=== PATIENT | female | born 1990 | race Caucasian/White ===

== ENCOUNTER 2024-07-04 14:24 | Emergency (ER) | payer OTHER, SELFPAY ==
--- NOTE | ~2024-07-04 | US_ITS ---
EXAMINATION: US OB <=14 wk fetus w TV DATE: 07/04/2024 18:23 INDICATION: Pelvic pain TECHNIQUE: Real-time transabdominal and transvaginal obstetric ultrasound. FINDINGS: No prior studies for comparison. The uterus measures 7.3 x 4.6 x 5.5 cm. There is an intrauterine gestational sac, with pole ema ntified. The crown rump length measures 0.67 cm, which correlates with a estimated gestational age o f 6 weeks 4 days. heart tones are identified measuring 132 bpm. Incidental note is made of a nabothian cysts. There are follicular changes in the right ovary. No free fluid in the pelvis. IMPRESSION: 1. SL IUP with an EGA of 6 weeks, 4 days (EDC by current ultrasound of 02/23/2025). Reviewed, dictated and finalized at location A. RADIAL DRILL PRESS SET UP OPERATOR IMPRESSION: 1. SL IUP with an EGA of 6 weeks, 4 days (EDC by current ultrasound of 02/24/20 25).
--- NOTE | ~2024-07-04 | US_ITS ---
RIGHT UPPER QUADRANT ABDOMINAL ULTRASOUND (Doppler ultrasound interrogation techniques used as needed for this exam.) Ordering provider: Vesna Enriquez PA-C History: . RUQ abd pain . Comparison: None. FINDINGS: PANCREAS: Normal echotexture and size. PORTAL VEIN: Hepatopedal flow demonstrated. LIVER: Normal size and echotexture. No focal hepatic lesions or perihepatic fluid collections are ema ntified. BILIARY DUCTS: No intra or extrahepatic biliary dilation. Common bile duct measures 3 mm in diameter which is normal for patient's age. GALLBLADDER: Normal. No stones, sludge, gallbladder wall thickening or pericholecystic fluid. Wall th icknesses 0.2 cm. Negative sonographic Adan's sign. Aorta: Normal. IVC: Normal. FREE FLUID: None visualized within the upper abdomen. IMPRESSION: Normal right upper quadrant ultrasound. Reviewed, dictated and finalized at location A. COUNSELOR
[2024-07-04 14:32] VITALS: BP 161/102; PULSE 122; RESP 18; TEMP 36.6; O2SAT 100
--- NOTE | 2024-07-04 14:39 | ED_ITS ---
HPI - Abdominal Pain General Chief Complaint: Abdominal Pain <Vesna Enriquez PA-C - Last Filed: 07/04/24 14:40> Stated Complaint: I think I have an ectopic <Vesna Enriquez PA-C - Last Filed: 07/04/24 14:40> Time Seen by Provider: 07/04/24 15:28 <Vesna Enriquez PA-C - Last Filed: 07/04/24 14:40> Focused HPI: 33-year-old female presents emergency department for abdominal pain and concerns for . Patient states her last period was end of April but it was septic tank setter and shorter than normal. She then missed her period in May. On June 18 she took a test which was positive. She presents today for abdominal pain. She states she has had intermittent abdominal pain in the right upper quadrant for several years and has been worked up for this on an outpatient basis with no cause identified. She states this same pain is occurring again which prompted her to come to the ED because she is concerned she may be having an ectopic . States the pain is in the right upper quadrant radiates at times to the right lower quadrant. No aggravating or alleviating factors. Patient also states she has she has had light spotting since she had a positive test. States she has past month thoughts but has not required a pad or tampon, notices blood in the morning when she wipes. Denies dysuria or hematuria, fever. No prior abdominal surgeries. GENERAL: Well-appearing, well-nourished, and in no acute distress. HEAD: Normocephalic, atraumatic. CHEST: Clear to auscultation. ?No respiratory distress. HEART: Regular rate and rhythm.? NEURO: ?Alert and oriented x3. Patient screened in triage and initial orders placed.? ?Additional care and disposition to be based upon?diagnostic testing and treatment. <Vesna Enriquez PA-C - Last Filed: 07/04/24 14:40> History of Present Illness HPI narrative: Agree with HPI. Chronic right-sided abdominal pain over last 2 weeks she has had a positive test with persistent red vaginal spotting. No syncope. with elective AB2. Denies fevers or chills or sweats. No urinary frequency urgency or dysuria. No vaginal discharge. <Niko De Anda MD - Last Filed: 07/04/24 19:24> Related Data Allergies/Adverse Reactions: Allergies Allergy/AdvReac Type Severity Reaction Status Date / Time No Known Allergies Allergy Verified 07/04/24 14:25 <Vesna Enriquez PA-C - Last Filed: 07/04/24 14:40> Review of Systems 2 Review of Systems: All systems reviewed & are unremarkable except as noted in HPI and below <Niko De Anda MD - Last Filed: 07/04/24 19:24> Constitutional: Constitutional: Reports no additional constitutional complaints <Niko De Anda MD - Last Filed: 07/04/24 19:24> Cardiovascular: Cardiovascular: Reports no additional cardiovascular complaints <Niko De Anda MD - Last Filed: 07/04/24 19:24> Respiratory: Respiratory: Reports no additional respiratory complaints < Niko De Anda MD - Last Filed: 07/04/24 19:24> Gastrointestinal: Gastrointestinal: Reports no additional gastrointestinal complaints <Niko De Anda MD - Last Filed: 07/04/24 19:24> Genitourinary: Genitourinary: Reports no additional female genitourinary complaints <Niko De Anda MD - Last Filed: 07/04/24 19:24> PMFSH Social History Social History: Social History Smoking status: Current every day smoker Alcohol intake: current <Vesna Enriquez PA-C - Last Filed: 07/04/24 14:40> Exam 2 Narrative: GENERAL: Well-appearing, well-nourished, and in no acute distress. HEAD: Normocephalic, atraumatic. ENT: Mucous membranes moist. CHEST: Clear to auscultation. No respiratory distress. HEART: Regular rate and rhythm. Normal peripheral pulses. ABDOMEN: Soft, nontender, nondistended. Pelvic: Normal external genitalia. Cervix closed with scant blood and no discharge. EXTREMITIES: Normal range of motion. No edema. NEURO: Alert and oriented x3. PSYCH: Normal mood and affect. <Niko De Anda MD - Last Filed: 07/04/24 19:24> Course Course Emergency Course: Live IUP. Labs unremarkable with exception of low potassium. A+ so no RhoGAM. Will give OB f/u. <Niko De Anda MD - Last Filed: 07/04/24 19:24> Vital Signs Vital signs: Vital Signs Temperature 98 F 07/04/24 14:32 Pulse Rate 122 H 07/04/24 14:32 Respiratory Rate 18 07/04/24 14:32 Blood Pressure 161/102 H 07/04/24 14:32 Pulse Oximetry 100 07/04/24 14:32 Oxygen Delivery Room Air 07/04/24 14:32 Temperature 98 F 07/04/24 14:32 Pulse Rate 122 H 07/04/24 14:32 Respiratory Rate 18 07/04/24 14:32 Blood Pressure 161/102 H 07/04/24 14:32 Pulse Oximetry 100 07/04/24 14:32 Oxygen Delivery Room Air 07/04/24 14:32 <Vesna Enriquez PA-C - Last Filed: 07/04/24 14:40> Vital Signs Temperature 98 F 07/04/24 14:32 Pulse Rate 122 H 07/04/24 14:32 Respiratory Rate 18 07/04/24 14:32 Blood Pressure 161/102 H 07/04/24 14:32 Pulse Oximetry 100 07/04/24 14:32 Oxygen Delivery Room Air 07/04/24 14:32 Temperature 98 F 07/04/24 14:32 Pulse Rate 122 H 07/04/24 14:32 Respiratory Rate 18 07/04/24 14:32 Blood Pressure 161/102 H 07/04/24 14:32 Pulse Oximetry 100 07/04/24 14:32 Oxygen Delivery Room Air 07/04/24 14:32 <Niko De Anda MD - Last Filed: 07/04/24 19:24> MDM - Abdominal Pain Lab Data Result diagrams: 07/04/24 16:05 07/04/24 16:05 <Vesna Enriquez PA-C - Last Filed: 07/04/24 14:40> Labs: Lab Results 07/04/24 07/04/24 Range/Units 16:05 18:19 WBC 7.5 (4.5-10.0) K/mm3 RBC 4.47 (4.2-5.4) M/mm3 Hgb 13.4 (12.0-15.0) g/dL Hct 38.2 (37.0-47.0) % MCV 85.5 (80-100) fl MCH 30.0 (26-34) pg MCHC 35.1 (32-36) g/dl RDW 12.2 (11.5-14.5) % Plt Count 201 (150-375) k/mm3 MPV 9.7 (7.4-10.4) fl Immature Gran % (Auto) 0.3 (0-0.5) % Neut % (Auto) 68.1 (45.5-73.1) % Lymph % (Auto) 23.4 (18.3-44.2) % [place] % (Auto) 7.6 (2.6-8.5) % Eos % (Auto) 0.3 (0-4.4) % Baso % (Auto) 0.3 (0.2-1.2) % Lymph # (Auto) 1.75 (0.9-3.2) K/mm3 [place]ran # (Auto) 0.6 (0.1-0.6) K/mm3 Eos # (Auto) 0.0 (0-0.3) K/mm3 Baso # (Auto) 0.0 (0.0-0.1) K/mm3 Abs Immat Gran (auto) 0.02 (0.00-0.031) K/mm3 Absolute Neuts (auto) 5.1 (1.3-6.7) K/mm3 Absolute Nucleated RBC 0.000 (0.0-0.012) K/mm3 Nucleated RBC % 0.0 (0.0-0.2) % PT 13.9 (11.1-14.7) Seconds INR 1.0 APTT 26.7 (22.3-36.8) Seconds Sodium 133 L (137-145) mmol/L Potassium 3.2 L (3.4-5.0) mmol/L Chloride 98 (98-107) mmol/L Carbon Dioxide 26 (22-30) mmol/L Anion Gap 9 (4-12) mmol/L BUN 7 (7-17) mg/dL Creatinine 0.42 L (0.7-1.0) mg/dL Estim Creat Clear Calc 112 ml/min Estimated GFR > 60 (59 - ) Glucose 97 (65-110) mg/dL Calcium 8.6 (8.4-10.2) mg/dL Total Bilirubin 0.7 (0.2-1.3) mg/dL AST 21 (14-36) U/L ALT 17 (6-35) U/L Alkaline Phosphatase 68 (38-126) U/L Total Protein 8.0 (6.3-8.2) g/dL Albumin 4.4 (3.5-5.1) g/dL Beta HCG, Quant 31731.00 mIU/ML Urine Color Yellow (Yellow) Urine Appearance Clear (Clear) Urine pH 7.0 (5.0-9.0) Ur Specific [place] 1.020 (1.001-1.035) Urine Protein 1+ H (Negative) mg/dL Urine Glucose (UA) Negative (Negative) mg/dL Urine Ketones Trace H (Negative) mg/dL Ur Blood (Man) Negative (Negative) Urine Nitrate Negative (Negative) Urine Bilirubin Negative (Negative) Urine Urobilinogen 1.0 (<2.0) mg/dL Leukocyte Esterase Rfl Negative (Negative) LAUREN/UL Urine RBC 0-2 (0-2) /hpf Urine WBC 0-5 (0-3) /hpf Ur Squamous Epith Cells Occasional (Few) /hpf Urine Bacteria None seen /hpf Urine Casts 0-2 Blood Type A Positive Antibody Screen Pending Screen TNP Baby's Blood Type Not Reportable Baby's DOMENICO Not Reportable Doses of RhIg Required 0 <Vesna Enriquez PA-C - Last Filed: 07/04/24 14:40> Lab Results 07/04/24 07/04/24 Range/Units 16:05 18:19 WBC 7.5 (4.5-10.0) K/mm3 RBC 4.47 (4.2-5.4) M/mm3 Hgb 13.4 (12.0-15.0) g/dL Hct 38.2 (37.0-47.0) % MCV 85.5 (80-100) fl MCH 30.0 (26-34) pg MCHC 35.1 (32-36) g/dl RDW 12.2 (11.5-14.5) % Plt Count 201 (150-375) k/mm3 MPV 9.7 (7.4-10.4) fl Immature Gran % (Auto) 0.3 (0-0.5) % Neut % (Auto) 68.1 (45.5-73.1) % Lymph % (Auto) 23.4 (18.3-44.2) % [place] % (Auto) 7.6 (2.6-8.5) % Eos % (Auto) 0.3 (0-4.4) % Baso % (Auto) 0.3 (0.2-1.2) % Lymph # (Auto) 1.75 (0.9-3.2) K/mm3 [place] # (Auto) 0.6 (0.1-0.6) K/mm3 Eos # (Auto) 0.0 (0-0.3) K/mm3 Baso # (Auto) 0.0 (0.0-0.1) K/mm3 Abs Immat Gran (auto) 0.02 (0.00-0.031) K/mm3 Absolute Neuts (auto) 5.1 (1.3-6.7) K/mm3 Absolute Nucleated RBC 0.000 (0.0-0.012) K/mm3 Nucleated RBC % 0.0 (0.0-0.2) % PT 13.9 (11.1-14.7) Seconds INR 1.0 APTT 26.7 (22.3-36.8) Seconds Sodium 133 L (137-145) mmol/L Potassium 3.2 L (3.4-5.0) mmol/L Chloride 98 (98-107) mmol/L Carbon Dioxide 26 (22-30) mmol/L Anion Gap 9 (4-12) mmol/L BUN 7 (7-17) mg/dL Creatinine 0.42 L (0.7-1.0) mg/dL Estim Creat Clear Calc 112 ml/min Estimated GFR > 60 (59 - ) Glucose 97 (65-110) mg/dL Calcium 8.6 (8.4-10.2) mg/dL Total Bilirubin 0.7 (0.2-1.3) mg/dL AST 21 (14-36) U/L ALT 17 (6-35) U/L Alkaline Phosphatase 68 (38-126) U/L Total Protein 8.0 (6.3-8.2) g/dL Albumin 4.4 (3.5-5.1) g/dL Beta HCG, Quant 22766.00 mIU/ML Urine Color Yellow (Yellow) Urine Appearance Clear (Clear) Urine pH 7.0 (5.0-9.0) Ur Specific [place] 1.020 (1.001-1.035) Urine Protein 1+ H (Negative) mg/dL Urine Glucose (UA) Negative (Negative) mg/dL Urine Ketones Trace H (Negative) mg/dL Ur Blood (Man) Negative (Negative) Urine Nitrate Negative (Negative) Urine Bilirubin Negative (Negative) Urine Urobilinogen 1.0 (<2.0) mg/dL Leukocyte Esterase Rfl Negative (Negative) LAUREN/UL Urine RBC 0-2 (0-2) /hpf Urine WBC 0-5 (0-3) /hpf Ur Squamous Epith Cells Occasional (Few) /hpf Urine Bacteria None seen /hpf Urine Casts 0-2 Blood Type A Positive Antibody Screen Pending Screen TNP Baby's Blood Type Not Reportable Baby's DOMENICO Not Reportable Doses of RhIg Required 0 <Niko De Anda MD - Last Filed: 07/04/24 19:24> Imaging Data Radiologist's impression: ITS Impressions Upper Quadrant Ultrasound 07/04/24 15:06 IMPRESSION: Normal right upper quadrant ultrasound. Obstetrics Ultrasound 07/04/24 18:27 IMPRESSION: 1. SL IUP with an EGA of 6 weeks, 4 days (EDC by current ultrasound of 02/23/2025). <Vesna Enriquez PA-C - Last Filed: 07/04/24 14:40> ITS Impressions Upper Quadrant Ultrasound 07/04/24 15:06 IMPRESSION: Normal right upper quadrant ultrasound. Obstetrics Ultrasound 07/04/24 18:27 IMPRESSION: 1. SL IUP with an EGA of 6 weeks, 4 days (EDC by current ultrasound of 02/23/2025). <Niko De Anda MD - Last Filed: 07/04/24 19:24> Discharge Plan Discharge Clinical Impression: Threatened miscarriage <Vesna Enriquez PA-C - Last Filed: 07/04/24 14:40> Patient Disposition: Home, Self-Care <Vesna Enriquez PA-C - Last Filed: 07/04/24 14:40> Condition: Stable <Vesna Enriquez PA-C - Last Filed: 07/04/24 14:40> Instructions: Threatened Miscarriage (ED) <Vesna Enriquez PA-C - Last Filed: 07/04/24 14:40> Additional Instructions: Follow-up with your upfitter. Your blood type is A positive so you do not require RhoGAM. Return to the ER if you lose consciousness, your bleeding through 1 pad an hour for 3 continuous hours, or you have additional concerns. Your due date is 02/23/2025. <Vesna Enriquez PA-C - Last Filed: 07/04/24 14:40> Patient Language: Latvian <Vesna Enriquez PA-C - Last Filed: 07/04/24 14:40> Follow-up/Referrals: Ovidio Schultz MD [Physician] - 1 Week PHYSICIAN,ONLINE USER EXPERIENCE STRATEGIST [Primary Care Provider] - <Vesna Enriuqez PA-C - Last Filed: 07/04/24 14:40>
[2024-07-04 16:14] LABS: Basophils Percent Auto 0.3 % (0.2-1.2); Eosinophils Percent Auto 0.3 % (0-4.4); Hematocrit 38.2 % (37.0-47.0); Hemoglobin 13.4 g/dL (12.0-15.0); Immature Granulocyte Absolute 0.02 K/mm3 (0.00-0.031); Immature Granulocyte Percent A 0.3 % (0-0.5); Lymphocytes Absolute Auto 1.75 K/mm3 (0.9-3.2); Lymphocytes Percent Auto 23.4 % (18.3-44.2); Mean Corpuscular HGB Conc 35.1 g/dl (32-36); Mean Corpuscular Volume 85.5 fl (80-100); Mean Platelet Volume 9.7 fl (7.4-10.4); Monocytes Absolute Auto 0.6 K/mm3 (0.1-0.6); Monocytes Percent Auto 7.6 % (2.6-8.5); Neutrophils Absolute Auto 5.1 K/mm3 (1.3-6.7); Neutrophils Percent Auto 68.1 % (45.5-73.1); Platelet Count Result 201 k/mm3 (150-375); Red Blood Count 4.47 M/mm3 (4.2-5.4); Red Cell Distribution Width 12.2 % (11.5-14.5); White Blood Count 7.5 K/mm3 (4.5-10.0)
[2024-07-04 16:24] LABS: Add Urine Microscopic? YES; Appearance Urine Clear (Clear); Bacteria Urine None Seen /hpf; Bilirubin Urine Negative (Negative); Blood Urine Negative (Negative); Color Urine Yellow (Yellow); Glucose Urine UA Negative (Negative); Ketones Urine Trace mg/dL (Negative); Leukocyte Esterase Ur Negative LEU/UL (Negative); Nitrate Urine Negative (Negative); Non Pathogenic Casts 0-2; Protein Urine 1+ mg/dL (Negative); RBC Urine 0-2 /hpf (0-2); Squamous Epithelial Cell Urine Occasional /hpf (Few); WBC Urine 0-5 /hpf (0-3)
[2024-07-04 16:26] LABS: Alanine Aminotransferase 17 U/L (6-35); Albumin Level 4.4 g/dL (3.5-5.1); Alkaline Phosphatase 68 U/L (38-126); Anion Gap 9 mmol/L (4-12); Aspartate Amino Transferase 21 U/L (14-36); Bilirubin,Total 0.7 mg/dL (0.2-1.3); Blood Urea Nitrogen 7 mg/dL (7-17); Calcium 8.6 mg/dL (8.4-10.2); Carbon Dioxide 26 mmol/L (22-30); Chloride 98 mmol/L (98-107); Estimated CRCL calculation 112 ml/min; Estimated Glomerular Filt Rate > 60; Glucose 97 mg/dL (65-110); Partial Thromboplastin Time 26.7 Seconds (22.3-36.8); Potassium 3.2 mmol/L (3.4-5.0); Prothrombin Time 13.9 Seconds (11.1-14.7); Sodium 133 mmol/L (137-145)
[2024-07-04] MEDS: SODIUM CHLORIDE 0.9% IV 1,000 ML 999 ML IV CONT (18:21)
[2024-07-04 19:30] VITALS: BP 166/101; PULSE 100; RESP 20; O2SAT 100
== END 2024-07-04 19:31 | disposition home or self-care (01) ==
PROVIDERS: Physician Assistant; Emergency Provider Emergency Medicine
DX: O20.0 Threatened abortion (principal); Z3A.01 Less than 8 weeks gestation of pregnancy; O99.331 Smoking (tobacco) complicating pregnancy, first trimester; F17.200 Nicotine dependence, unspecified, uncomplicated
CPT/HCPCS: 36415; 76705; 76801; 76817; 80053; 81001; 84702; 85025; 85461; 85610; 85730; 86850; 86900; 86901; 96360; 99284; J7030